=== PATIENT | female | born 1955 | race American Indian/Alaskan Native ===

== ENCOUNTER 2017-07-05 15:22 | Inpatient (IN) | payer OTHER ==
[2017-07-05 17:51] LABS: Basophils # (Auto) 0.1 K/mm3 (0.0-0.1); Basophils % (Auto) 1.1 % (0.0-1.8); Eosinophils # (Auto) 0.2 K/mm3 (0.0-0.4); Eosinophils % (Auto) 3.5 % (0.0-4.3); Hematocrit 34.8 % (30.3-42.9); Hemoglobin 11.6 gm/dl (10.1-14.3); Lymphocytes # (Auto) 1.7 K/mm3 (1.2-5.4); Lymphocytes % (Auto) 32.2 % (13.4-35.0); Mean Corpuscular HGB Conc 34 % (30-34); Mean Corpuscular Hemoglobin 28 pg (28-32); Mean Corpuscular Volume 85 fl (79-97); Monocytes # (Auto) 0.3 K/mm3 (0.0-0.8); Monocytes % (Auto) 6.6 % (0.0-7.3); Platelet Count 292 K/mm3 (140-440); Red Blood Count 4.09 M/mm3 (3.65-5.03); Red Cell Distribution Width 16.6 % (13.2-15.2)
[2017-07-05 18:01] LABS: INR 0.97 (0.87-1.13)
[2017-07-05 18:02] LABS: Partial Thromboplastin Time 32.6 Sec. (24.2-36.6)
[2017-07-05 18:18] LABS: BUN/Creatinine Ratio 14; Blood Urea Nitrogen 7 mg/dL (7-17); Calcium 8.7 mg/dL (8.4-10.2); Creatine Kinase MB 1.5 ng/mL (0.0-4.0); Hemolysis Index 7
[2017-07-05 18:22] LABS: Alanine Aminotransferase 5 units/L (7-56); Albumin 3.6 g/dL (3.9-5)
[2017-07-05 18:25] LABS: Bilirubin,Direct 0.2 mg/dL (0-0.2)
[2017-07-05] MEDS ORDERED: ATIVAN IV ONE (18:36)
[2017-07-05] MEDS ORDERED: NACL 0.9% 1000 ML 1,000 ML ONE (18:43)
--- NOTE | 2017-07-05 18:53 | XRay Report ---
FINAL REPORT PROCEDURE: Chest. TECHNIQUE: Portable AP view. HISTORY: Hypertension. COMPARISON: No prior studies are available for comparison. FINDINGS: The patient is rotated to the right. The heart size is normal. There is mild tortuosity of the thoracic aorta. The lungs are clear and well expanded. There are no pleural effusions. The soft tissues and regional skeleton are unremarkable. IMPRESSION: Negative portable chest.
[2017-07-05] MEDS ORDERED: NACL 0.9% 1000 ML 1,000 ML IV ONE (19:08)
[2017-07-05 19:40] LABS: Amphetamine Screen,Urine PRESUMPTIVE NEGATIVE; Benzodiazepines Screen,Urine PRESUMPTIVE NEGATIVE; Cannabinoid Screen,Urine PRESUMPTIVE NEGATIVE; Cocaine Screen,Urine PRESUMPTIVE NEGATIVE; Methadone Screen,Urine PRESUMPTIVE NEGATIVE; Opiate Screen,Urine PRESUMPTIVE NEGATIVE
[2017-07-05 19:46] LABS: Amorphous Crystals,Urine 2+; Bilirubin,Urine NEG (Negative); Blood,Urine NEG (Negative); Color,Urine Amber (Yellow); Mucus,Urine 3+ /HPF; Nitrite,Urine NEG (Negative)
[2017-07-05 19:48] LABS: RBC,Urine < 1.0 /HPF (0.0-6.0); WBC,Urine < 1.0 /HPF (0.0-6.0)
--- NOTE | 2017-07-05 20:00 | Cat Scan Report ---
FINAL REPORT PROCEDURE: CT head without contrast. TECHNIQUE: Computerized tomography of the head was performed without contrast material. HISTORY: Altered mental status. COMPARISON: No prior studies are available for comparison. FINDINGS: The ventricles are normal in size. There are some old lacunar infarcts in the deep white matter of both frontal lobes and in the right side of the hector. There are subtle old lacunar infarcts in both sides of the thalamus. There is mild evidence of chronic ischemic white matter disease. There are no mass lesions. There is no intracranial hemorrhage. The calvarium appears intact. There is a tiny amount of fluid in a couple of the right mastoid air cells. The paranasal sinuses are clear as far as visualized. IMPRESSION: Chronic ischemic changes as described. Mild right mastoiditis.
--- NOTE | 2017-07-05 20:02 | Emergency Department Report ---
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 The triage note refers to left-sided weakness but this is an acute problem per the family. She is here today because she is confused and disoriented. Assessment present at least since this morning. The patient has a history of chronic back pain. However she is not on chronic narcotics. She does take gabapentin. The family reports no history of serious infection or frequent UTIs. They report no recent fever or chills. The patient is awake and reasonably alert. She does not complain of pain. She states she thinks that she is at [facility] but she knows she is in a hospital. Crisis family patient has a history of lupus. I am not sure the basis of this diagnosis. -: Gradual, hour(s) Severity scale (0 -10): 0 - Related Data Home Medications Medication Instructions Recorded Confirmed Last Taken AtorvaSTATin [Lipitor] 40 mg PO QPM 07/05/17 07/05/17 Unknown Baclofen [Lioresal] 10 mg PO TID 07/05/17 07/05/17 Unknown Gabapentin [Neurontin] 300 mg PO TID 07/05/17 07/05/17 Unknown Metoprolol Succinate [Toprol Xl] 150 mg PO DAILY 07/05/17 07/05/17 Unknown Allergies Allergy/AdvReac Type Severity Reaction Status Date / Time amoxicillin Allergy Rash Verified 07/05/17 16:47 azithromycin Allergy Hives Verified 07/05/17 16:47 codeine Allergy Unknown Verified 07/05/17 16:47 morphine Allergy Unknown Verified 07/05/17 16:47 Sulfa (Sulfonamide Allergy Rash Verified 07/05/17 16:47 Antibiotics) lisinopril AdvReac Nausea Verified 07/05/17 16:47 lovastatin AdvReac Unknown Verified 07/05/17 16:47 ED Review of Systems ROS: Stated complaint: AMS/ M/S POSS STROKE Other details as noted in HPI Comment: Unobtainable due to pts medical conditions ED Past Medical Hx - Past Medical History Previous Medical History?: Yes Hx Hypertension: Yes Hx CVA: Yes Additional medical history: Hx of back spasms; lupus; edema; - Social History Smoking Status: Unknown if ever smoked - Medications Home Medications: Home Medications Medication Instructions Recorded Confirmed Last Taken Type AtorvaSTATin [Lipitor] 40 mg PO QPM 07/05/17 07/05/17 Unknown History Baclofen [Lioresal] 10 mg PO TID 07/05/17 07/05/17 Unknown History Gabapentin [Neurontin] 300 mg PO TID 07/05/17 07/05/17 Unknown History Metoprolol Succinate [Toprol Xl] 150 mg PO DAILY 07/05/17 07/05/17 Unknown History ED Physical Exam - General Limitations: Altered Mental Status General appearance: alert, in no apparent distress - Head Head exam: Present: atraumatic, normocephalic - Eye Eye exam: Present: normal appearance, PERRL, EOMI. Absent: scleral icterus - ENT ENT exam: Present: mucous membranes moist - Neck Neck exam: Present: normal inspection - Respiratory Respiratory exam: Present: normal lung sounds bilaterally. Absent: respiratory distress - Cardiovascular Cardiovascular Exam: Present: regular rate, normal rhythm. Absent: systolic murmur, diastolic murmur, rubs, gallop - GI/Abdominal GI/Abdominal exam: Present: soft, normal bowel sounds. Absent: distended, tenderness, guarding, rebound - Extremities Exam Extremities exam: Present: normal inspection - Back Exam Back exam: Present: normal inspection - Neurological Exam Neurological exam: Present: alert, oriented X3, CN II-XII intact, other (I did not find any evidence of drift or focal deficit). Absent: motor sensory deficit - Psychiatric Psychiatric exam: Present: agitated (minorLY), flat affect - Skin Skin exam: Present: warm, dry, intact, normal color. Absent: rash ED Course Vital Signs 07/05/17 07/05/17 07/05/17 16:24 16:29 16:30 Temperature 98.5 F Pulse Rate 84 Respiratory 15 Rate Blood Pressure 165/89 165/89 Blood Pressure 165/89 [Right] O2 Sat by Pulse 92 92 Oximetry 07/05/17 07/05/17 07/05/17 16:45 16:50 17:01 Temperature 98.5 F Pulse Rate 83 84 80 Respiratory 13 15 12 Rate Blood Pressure 165/89 173/80 Blood Pressure 165/89 [Right] O2 Sat by Pulse 97 92 95 Oximetry 07/05/17 07/05/17 07/05/17 17:15 17:31 17:45 Temperature Pulse Rate 81 82 82 Respiratory 13 14 17 Rate Blood Pressure 173/80 128/85 128/85 Blood Pressure [Right] O2 Sat by Pulse 96 99 98 Oximetry ED Medical Decision Making - Lab Data Result diagrams: 07/05/17 17:30 07/05/17 17:30 Laboratory Results - last 24 hr 07/05/17 07/05/17 07/05/17 17:27 17:30 17:30 WBC 5.1 RBC 4.09 Hgb 11.6 Hct 34.8 MCV 85 MCH 28 MCHC 34 RDW 16.6 H Plt Count 292 Lymph % (Auto) 32.2 [place] % (Auto) 6.6 Eos % (Auto) 3.5 Baso % (Auto) 1.1 Lymph # 1.7 [place] # 0.3 Eos # 0.2 Baso # 0.1 Seg Neutrophils % 56.6 Seg Neutrophils # 2.9 PT INR APTT Sodium Potassium Chloride Carbon Dioxide Anion Gap BUN Creatinine Estimated GFR BUN/Creatinine Ratio Glucose POC Glucose 72 Lactic Acid Calcium Total Bilirubin Direct Bilirubin Indirect Bilirubin AST ALT Alkaline Phosphatase Ammonia Total Creatine Kinase CK-MB (CK-2) CK-MB (CK-2) Rel Index Troponin T NT-Pro-B Natriuret Pep Total Protein Albumin Albumin/Globulin Ratio TSH 1.140 Urine Color Urine Turbidity Urine pH Ur Specific [place] Urine Protein Urine Glucose (UA) Urine Ketones Urine Blood Urine Nitrite Urine Bilirubin Urine Urobilinogen Ur Leukocyte Esterase Urine WBC (Auto) Urine RBC (Auto) U Epithel Cells (Auto) Amorphous Crystals Urine Mucus Urine Opiates Screen Urine Methadone Screen Ur Barbiturates Screen Ur Phencyclidine Scrn Ur Amphetamines Screen U Benzodiazepines Scrn Urine Cocaine Screen U Marijuana (THC) Screen Drugs of Abuse Note Plasma/Serum Alcohol 07/05/17 07/05/17 07/05/17 17:30 17:30 17:30 WBC RBC Hgb Hct MCV MCH MCHC RDW Plt Count Lymph % (Auto) [place] % (Auto) Eos % (Auto) Baso % (Auto) Lymph # [place] # Eos # Baso # Seg Neutrophils % Seg Neutrophils # PT 13.4 INR 0.97 APTT 32.6 Sodium Potassium Chloride Carbon Dioxide Anion Gap BUN Creatinine Estimated GFR BUN/Creatinine Ratio Glucose POC Glucose Lactic Acid Calcium Total Bilirubin Direct Bilirubin Indirect Bilirubin AST ALT Alkaline Phosphatase Ammonia 29.0 Total Creatine Kinase CK-MB (CK-2) CK-MB (CK-2) Rel Index Troponin T NT-Pro-B Natriuret Pep Total Protein Albumin Albumin/Globulin Ratio TSH Urine Color Urine Turbidity Urine pH Ur Specific [place] Urine Protein Urine Glucose (UA) Urine Ketones Urine Blood Urine Nitrite Urine Bilirubin Urine Urobilinogen Ur Leukocyte Esterase Urine WBC (Auto) Urine RBC (Auto) U Epithel Cells (Auto) Amorphous Crystals Urine Mucus Urine Opiates Screen Urine Methadone Screen Ur Barbiturates Screen Ur Phencyclidine Scrn Ur Amphetamines Screen U Benzodiazepines Scrn Urine Cocaine Screen U Marijuana (THC) Screen Drugs of Abuse Note Plasma/Serum Alcohol < 0.01 07/05/17 07/05/17 07/05/17 17:30 17:30 17:30 WBC RBC Hgb Hct MCV MCH MCHC RDW Plt Count Lymph % (Auto) [place] % (Auto) Eos % (Auto) Baso % (Auto) Lymph # [place] # Eos # Baso # Seg Neutrophils % Seg Neutrophils # PT INR APTT Sodium 140 Potassium 3.4 L Chloride 98.3 Carbon Dioxide 23 Anion Gap 22 BUN 7 Creatinine 0.5 L Estimated GFR > 60 BUN/Creatinine Ratio 14 Glucose 80 POC Glucose Lactic Acid 1.20 Calcium 8.7 Total Bilirubin 0.70 Direct Bilirubin 0.2 Indirect Bilirubin 0.5 AST 17 ALT 5 L Alkaline Phosphatase 72 Ammonia Total Creatine Kinase 94 CK-MB (CK-2) 1.5 CK-MB (CK-2) Rel Index 1.5 Troponin T < 0.010 NT-Pro-B Natriuret Pep 532.0 Total Protein 7.8 Albumin 3.6 L Albumin/Globulin Ratio 0.9 TSH Urine Color Urine Turbidity Urine pH Ur Specific [place] Urine Protein Urine Glucose (UA) Urine Ketones Urine Blood Urine Nitrite Urine Bilirubin Urine Urobilinogen Ur Leukocyte Esterase Urine WBC (Auto) Urine RBC (Auto) U Epithel Cells (Auto) Amorphous Crystals Urine Mucus Urine Opiates Screen Urine Methadone Screen Ur Barbiturates Screen Ur Phencyclidine Scrn Ur Amphetamines Screen U Benzodiazepines Scrn Urine Cocaine Screen U Marijuana (THC) Screen Drugs of Abuse Note Plasma/Serum Alcohol 07/05/17 07/05/17 19:00 19:00 WBC RBC Hgb Hct MCV MCH MCHC RDW Plt Count Lymph % (Auto) [place] % (Auto) Eos % (Auto) Baso % (Auto) Lymph # [place] # Eos # Baso # Seg Neutrophils % Seg Neutrophils # PT INR APTT Sodium Potassium Chloride Carbon Dioxide Anion Gap BUN Creatinine Estimated GFR BUN/Creatinine Ratio Glucose POC Glucose Lactic Acid Calcium Total Bilirubin Direct Bilirubin Indirect Bilirubin AST ALT Alkaline Phosphatase Ammonia Total Creatine Kinase CK-MB (CK-2) CK-MB (CK-2) Rel Index Troponin T NT-Pro-B Natriuret Pep Total Protein Albumin Albumin/Globulin Ratio TSH Urine Color [place]ha Urine Turbidity Clear Urine pH 6.0 Ur Specific [place] 1.023 Urine Protein 100 mg/dl Urine Glucose (UA) Neg Urine Ketones 20 Urine Blood Neg Urine Nitrite Neg Urine Bilirubin Neg Urine Urobilinogen 4.0 Ur Leukocyte Esterase Neg Urine WBC (Auto) < 1.0 Urine RBC (Auto) < 1.0 U Epithel Cells (Auto) 2.0 Amorphous Crystals 2+ Urine Mucus 3+ Urine Opiates Screen Presumptive negative Urine Methadone Screen Presumptive negative Ur Barbiturates Screen Presumptive negative Ur Phencyclidine Scrn Presumptive negative Ur Amphetamines Screen Presumptive negative U Benzodiazepines Scrn Presumptive negative Urine Cocaine Screen Presumptive negative U Marijuana (THC) Screen Presumptive negative Drugs of Abuse Note Disclamer Plasma/Serum Alcohol - EKG Data -: EKG Interpreted by Me EKG shows normal: sinus rhythm, axis, intervals, QRS complexes, ST-T waves Rate: normal - EKG Data Interpretation: normal EKG - Radiology Data interpreted by me: CT of the head I do not see any acute intracranial process. Report pending per radiologist. Chest x-ray no acute process Critical care attestation.: If time is entered above; I have spent that time in minutes in the direct care of this critically ill patient, excluding procedure time. ED Disposition Clinical Impression: Altered mental status Qualifiers: Altered mental status type: disorientation Qualified Code(s): R41.0 - Disorientation, unspecified Disposition: -09 OP ADMIT IP TO THIS HOSP Is pt being admited?: Yes Does the pt Need Aspirin: Yes Condition: Stable Referrals: PRIMARY CARE, [Primary Care Provider] - 3-5 Days Time of Disposition: 20:07
[2017-07-05] MEDS ORDERED: ASPIRIN PO ONE (20:07)
--- NOTE | 2017-07-05 20:26 | History and Physical Report ---
History of Present Illness Chief complaint: Confused, Left sided weakness History of present illness: 62 YO Female with HTN, CVA, Obesity, SLE presents to ED for evaluation. Pt confused and lethargic and unable to provide history. Pt history taken from family. As per family, patient was in her usual state of health upon going to bed on the night prior to admission around 2100hrs. Upon waking this morning, the patient was found to be confused and unable to move the left side of her body. No reports of falls, trauma, seizure, fever,chills, CP, Palpitations, shortness of breath, productive cough, unintentional weight loss, HIV risk factors, hematurin, urgency, frequency, unintentional weight loss, or night sweats. Pt seen and evaluated in ED and found to be encephalopathic with systolic BP in the 170's. Patient smells of urine. Pt outside therapeutic window for TPA. Pt status discussed with [facility]ician, who requests that the patient undergo workup and treatment at [facility]. Past History Past Medical History: hypertension, stroke, other (Lupus) Past Surgical History: No surgical history, Other (reviewed) Social history: single. denies: smoking, alcohol abuse, prescription drug abuse Family history: hypertension Medications and Allergies Allergies Allergy/AdvReac Type Severity Reaction Status Date / Time amoxicillin Allergy Rash Verified 07/05/17 16:47 azithromycin Allergy Hives Verified 07/05/17 16:47 codeine Allergy Unknown Verified 07/05/17 16:47 morphine Allergy Unknown Verified 07/05/17 16:47 Sulfa (Sulfonamide Allergy Rash Verified 07/05/17 16:47 Antibiotics) lisinopril AdvReac Nausea Verified 07/05/17 16:47 lovastatin AdvReac Unknown Verified 07/05/17 16:47 Home Medications Medication Instructions Recorded Confirmed Last Taken Type AtorvaSTATin [Lipitor] 40 mg PO QPM 07/05/17 07/05/17 Unknown History Baclofen [Lioresal] 10 mg PO TID 07/05/17 07/05/17 Unknown History Gabapentin [Neurontin] 300 mg PO TID 07/05/17 07/05/17 Unknown History Metoprolol Succinate [Toprol Xl] 150 mg PO DAILY 07/05/17 07/05/17 Unknown History Active Meds: Active Medications Sodium Chloride (Nacl 0.9% 1000 Ml) 1,000 mls @ 125 mls/hr IV ONCE ONE Stop: 07/06/17 03:07 Review of Systems ROS unobtainable: due to mental status Exam - Constitutional Vitals: Temp Pulse Resp BP Pulse Ox 98.6 F 76 16 176/95 96 07/05/17 19:50 07/05/17 19:50 07/05/17 19:50 07/05/17 19:50 07/05/17 19:50 General appearance: Present: mild distress - EENT Eyes: Present: PERRL ENT: hearing intact, clear oral mucosa, poor dentition - Neck Neck: Present: supple, normal ROM - Respiratory Respiratory effort: normal Respiratory: bilateral: diminished - Cardiovascular Heart Sounds: Present: S1 & S2. Absent: rub, click - Extremities Extremities: pulses symmetrical, No edema Peripheral Pulses: within normal limits - Abdominal General gastrointestinal: Present: soft Female genitourinary: Present: normal - Integumentary Integumentary: Present: clear, dry, decreased turgor - Musculoskeletal Musculoskeletal: left sided weakness - Psychiatric Psychiatric: no intact judgment & insight, no memory intact - Neurologic Neurologic: focal deficits, no moves all extremities, no gait normal Results - Labs CBC & Chem 7: 07/05/17 17:30 07/05/17 17:30 Labs: Abnormal lab results 07/05/17 07/05/17 07/05/17 Range/Units 17:30 17:30 17:30 RDW 16.6 H (13.2-15.2) % Potassium 3.4 L (3.6-5.0) mmol/L Creatinine 0.5 L (0.7-1.2) mg/dL ALT 5 L (7-56) units/L Albumin 3.6 L (3.9-5) g/dL Assessment and Plan - Patient Problems (1) CVA (cerebral vascular accident) Current Visit: Yes Status: Acute Qualifiers: Precerebral and cerebral artery: middle cerebral artery Laterality of affected vessel: right Plan to address problem: Stroke protocol: CT Head, MRI brain, MRA brain, Echo, Carotod doppler, PT/OT/ Speech Therapy, antiplatelet therapy, EEG, Telemetry monitoring (2) Encephalopathy Current Visit: Yes Status: Acute Plan to address problem: CT head, neuro checks, bmp, serial physical exam. (3) Accelerated hypertension Current Visit: Yes Status: Acute Plan to address problem: Permissive hypertension overnight, monitor bp q shift, (4) Lupus Current Visit: Yes Status: Acute Qualifiers: Lupus erythematosus form: systemic Systemic lupus erythematosus type: unspecified Systemic lupus erythematosus organ involvement: unspecified Qualified Code(s): M32.9 - Systemic lupus erythematosus, unspecified Plan to address problem: No acute flare, supportive care, initiate steroid therapy if recurrent symptoms. (5) DVT prophylaxis Current Visit: Yes Status: Acute
[2017-07-05] MEDS ORDERED: PHENERGAN PR PRN (20:33)
[2017-07-05] MEDS ORDERED: DULCOLAX PR PRN (20:33)
[2017-07-05] MEDS ORDERED: TYLENOL PO PRN (20:33)
[2017-07-05] MEDS ORDERED: SODIUM CHLORIDE FLUSH SYRINGE 10 ML IV PRN (20:33)
[2017-07-05] MEDS ORDERED: ZOFRAN IV PRN (20:33)
[2017-07-05] MEDS ORDERED: PROVENTIL IH PRN (20:33)
[2017-07-05] MEDS ORDERED: MILK OF MAGNESIA PO PRN (20:33)
[2017-07-05] MEDS ORDERED: REGLAN PO PRN (20:33)
[2017-07-05 22:18] LABS: Creatine Kinase MB 1.6 ng/mL (0.0-4.0)
--- NOTE | 2017-07-06 11:13 | Progress Note ---
Assessment and Plan Assessment and plan: Acute CVA. Continue stroke protocol. Follow-up CT Head, MRI brain, MRA brain, Echo, Carotod doppler reveals less than 50% stenosis bilaterally, PT/OT/ Speech Therapy, antiplatelet therapy, EEG, Telemetry monitoring Acute encephalopathy. Etiology likely secondary to #1. Continue supportive care. Follow-up imaging. Accelerated hypertension. Continue permissive hypertension. Resume antihypertensive medications. SLE. Continue supportive care. DVT prophylaxis. History Interval history: Patient continues to have left lower extremity weakness. Hospitalist Physical - Constitutional Vitals: Temp Pulse Resp BP Pulse Ox 98.6 F 82 20 174/72 96 07/05/17 19:50 07/06/17 09:01 07/06/17 09:01 07/06/17 09:01 07/05/17 19:50 General appearance: Present: mild distress - EENT Eyes: Present: PERRL, EOM intact ENT: hearing intact, clear oral mucosa, dentition normal - Neck Neck: Present: supple, normal ROM - Respiratory Respiratory effort: normal Respiratory: bilateral: CTA - Cardiovascular Rhythm: regular Heart Sounds: Present: S1 & S2. Absent: gallop, rub - Extremities Extremities: no ischemia, No edema, Full ROM - Abdominal General gastrointestinal: soft, non-tender, non-distended, normal bowel sounds - Integumentary Integumentary: Present: clear, warm, dry - Neurologic Neurologic: CNII-XII intact, moves all extremities Results - Labs CBC & Chem 7: 07/05/17 17:30 07/05/17 17:30 Labs: Laboratory Last Values WBC 5.1 K/mm3 (4.5-11.0) 07/05/17 17:30 RBC 4.09 M/mm3 (3.65-5.03) 07/05/17 17:30 Hgb 11.6 gm/dl (10.1-14.3) 07/05/17 17:30 Hct 34.8 % (30.3-42.9) 07/05/17 17:30 MCV 85 fl (79-97) 07/05/17 17:30 MCH 28 pg (28-32) 07/05/17 17:30 MCHC 34 % (30-34) 07/05/17 17:30 RDW 16.6 % (13.2-15.2) H 07/05/17 17:30 Plt Count 292 K/mm3 (140-440) 07/05/17 17:30 Lymph % (Auto) 32.2 % (13.4-35.0) 07/05/17 17:30 [place] % (Auto) 6.6 % (0.0-7.3) 07/05/17 17:30 Eos % (Auto) 3.5 % (0.0-4.3) 07/05/17 17:30 Baso % (Auto) 1.1 % (0.0-1.8) 07/05/17 17:30 Lymph # 1.7 K/mm3 (1.2-5.4) 07/05/17 17:30 [place] # 0.3 K/mm3 (0.0-0.8) 07/05/17 17:30 Eos # 0.2 K/mm3 (0.0-0.4) 07/05/17 17:30 Baso # 0.1 K/mm3 (0.0-0.1) 07/05/17 17:30 Seg Neutrophils % 56.6 % (40.0-70.0) 07/05/17 17:30 Seg Neutrophils # 2.9 K/mm3 (1.8-7.7) 07/05/17 17:30 PT 13.4 Sec. (12.2-14.9) 07/05/17 17:30 INR 0.97 (0.87-1.13) 07/05/17 17:30 APTT 32.6 Sec. (24.2-36.6) 07/05/17 17:30 Sodium 140 mmol/L (137-145) 07/05/17 17:30 Potassium 3.4 mmol/L (3.6-5.0) L 07/05/17 17:30 Chloride 98.3 mmol/L (98-107) 07/05/17 17:30 Carbon Dioxide 23 mmol/L (22-30) 07/05/17 17:30 Anion Gap 22 mmol/L 07/05/17 17:30 BUN 7 mg/dL (7-17) 07/05/17 17:30 Creatinine 0.5 mg/dL (0.7-1.2) L 07/05/17 17:30 Estimated GFR > 60 ml/min 07/05/17 17:30 BUN/Creatinine Ratio 14 % 07/05/17 17:30 Glucose 80 mg/dL (65-100) 07/05/17 17:30 POC Glucose 72 (70-105) 07/05/17 17:27 Lactic Acid 1.20 mmol/L (0.7-2.0) 07/05/17 17:30 Calcium 8.7 mg/dL (8.4-10.2) 07/05/17 17:30 Total Bilirubin 0.70 mg/dL (0.1-1.2) 07/05/17 17:30 Direct Bilirubin 0.2 mg/dL (0-0.2) 07/05/17 17:30 Indirect Bilirubin 0.5 mg/dL 07/05/17 17:30 AST 17 units/L (5-40) 07/05/17 17:30 ALT 5 units/L (7-56) L 07/05/17 17:30 Alkaline Phosphatase 72 units/L (35-129) 07/05/17 17:30 Ammonia 29.0 umol/L (25-60) 07/05/17 17:30 Total Creatine Kinase 108 units/L (30-135) 07/05/17 21:46 CK-MB (CK-2) 1.6 ng/mL (0.0-4.0) 07/05/17 21:46 CK-MB (CK-2) Rel Index 1.4 (0-4) 07/05/17 21:46 Troponin T < 0.010 ng/mL (0.00-0.029) 07/05/17 17: NT-Pro-B Natriuret Pep 532.0 pg/mL (0-900) 07/05/17 17:30 Total Protein 7.8 g/dL (6.3-8.2) 07/05/17 17:30 Albumin 3.6 g/dL (3.9-5) L 07/05/17 17:30 Albumin/Globulin Ratio 0.9 % 07/05/17 17:30 TSH 1.140 mlU/mL (0.270-4.200) 07/05/17 17:30 Urine Color [place]ha (Yellow) 07/05/17 19:00 Urine Turbidity Clear (Clear) 07/05/17 19:00 Urine pH 6.0 (5.0-7.0) 07/05/17 19:00 Ur Specific [place] 1.023 (1.003-1.030) 07/05/17 19:00 Urine Protein 100 mg/dl mg/dL (Negative) 07/05/17 19:00 Urine Glucose (UA) Neg mg/dL (Negative) 07/05/17 19:00 Urine Ketones 20 mg/dL (Negative) 07/05/17 19:00 Urine Blood Neg (Negative) 07/05/17 19:00 Urine Nitrite Neg (Negative) 07/05/17 19:00 Urine Bilirubin Neg (Negative) 07/05/17 19:00 Urine Urobilinogen 4.0 mg/dL (<2.0) 07/05/17 19:00 Ur Leukocyte Esterase Neg (Negative) 07/05/17 19:00 Urine WBC (Auto) < 1.0 /HPF (0.0-6.0) 07/05/17 19:00 Urine RBC (Auto) < 1.0 /HPF (0.0-6.0) 07/05/17 19:00 U Epithel Cells (Auto) 2.0 /HPF (0-13.0) 07/05/17 19:00 Amorphous Crystals 2+ 07/05/17 19:00 Urine Mucus 3+ /HPF 07/05/17 19:00 Urine Opiates Screen Presumptive negative 07/05/17 19:00 Urine Methadone Screen Presumptive negative 07/05/17 19:00 Ur Barbiturates Screen Presumptive negative 07/05/17 19:00 Ur Phencyclidine Scrn Presumptive negative 07/05/17 19:00 Ur Amphetamines Screen Presumptive negative 07/05/17 19:00 U Benzodiazepines Scrn Presumptive negative 07/05/17 19:00 Urine Cocaine Screen Presumptive negative 07/05/17 19:00 U Marijuana (THC) Screen Presumptive negative 07/05/17 19:00 Drugs of Abuse Note Disclamer 07/05/17 19:00 Plasma/Serum Alcohol < 0.01 gm% (0-0.07) 07/05/17 17:30
[2017-07-06 14:42] LABS: Chol/HDL Ratio 4.13 %
--- NOTE | 2017-07-06 18:55 | Magnetic Resonance Report ---
FINAL REPORT PROCEDURE: MRI brain without contrast. TECHNIQUE: Magnetic resonance imaging of the brain was performed without contrast material. HISTORY: Stroke. COMPARISON: CT head 07/05/2017. FINDINGS: There is motion artifact on some of the pulse sequences. There is mild cerebral atrophy. There are old lacunar infarcts in the deep white matter of both frontal lobes. There is an old lacunar infarct in the right side of the [place]. There are old lacunar infarcts in both sides of the thalamus. There are no mass lesions. There is no intracranial hemorrhage. There are several small focal areas of restricted diffusion. These are located in the corpus callosum, the posterior portion of the left frontal lobe, the left parietal lobe, and the right parietal lobe. These small scattered areas are confirmed on the ADC map images. These represent small areas of acute infarction. Given their widespread distribution, they may be embolic in etiology. Clinical correlation is suggested. There is a tiny amount of fluid in a few of the right mastoid air cells. The paranasal sinuses are clear. IMPRESSION: New multifocal tiny areas of acute ischemia as described. An embolic source should be considered. Chronic ischemic changes as described. Very mild right mastoiditis.
--- NOTE | 2017-07-06 19:07 | Magnetic Resonance Report ---
FINAL REPORT PROCEDURE: Magnetic resonance angiogram brain without contrast. TECHNIQUE: Axial 3-D [id number] MR angiography of the [place] and brain was performed. The source images were reconstructed in various views using maximum intensity projection. HISTORY: Stroke. COMPARISON: No prior studies are available for comparison. FINDINGS: Both distal internal carotid arteries are patent. Both anterior cerebral arteries are patent. The anterior communicating artery is patent. Both middle cerebral arteries are patent. The posterior communicating arteries are not definitely visualized. Both distal vertebral arteries are patent. The right posterior inferior cerebellar artery is patent. The left PICA is not visible. The basilar artery is patent. Both anterior inferior cerebellar arteries are patent. Both superior cerebellar and both posterior cerebral arteries are patent. There are no signs of aneurysm disease. There is no evidence of a vasculitis. IMPRESSION: No significant abnormality.
[2017-07-07 06:16] LABS: Basophils % (Auto) 0.6 % (0.0-1.8); Eosinophils # (Auto) 0.2 K/mm3 (0.0-0.4); Eosinophils % (Auto) 4.6 % (0.0-4.3); Hematocrit 43.7 % (30.3-42.9); Hemoglobin 13.9 gm/dl (10.1-14.3); Lymphocytes # (Auto) 1.3 K/mm3 (1.2-5.4); Lymphocytes % (Auto) 38.3 % (13.4-35.0); Mean Corpuscular HGB Conc 32 % (30-34); Mean Corpuscular Hemoglobin 27 pg (28-32); Mean Corpuscular Volume 86 fl (79-97); Monocytes # (Auto) 0.3 K/mm3 (0.0-0.8); Monocytes % (Auto) 7.9 % (0.0-7.3); Platelet Count 171 K/mm3 (140-440); Red Blood Count 5.07 M/mm3 (3.65-5.03); Red Cell Distribution Width 16.8 % (13.2-15.2)
[2017-07-07 06:31] LABS: BUN/Creatinine Ratio 13; Blood Urea Nitrogen 5 mg/dL (7-17); Calcium 8.4 mg/dL (8.4-10.2); Hemolysis Index 5
--- NOTE | 2017-07-07 12:32 | XRay Report ---
LEFT KNEE, 2 views: History: Left knee pain. Severe tricompartmental osteoarthritic changes are identified. No evidence for fracture or bone lesion. Small joint effusion. Impression:: Advanced osteoarthritis. Small joint effusion.
--- NOTE | 2017-07-08 10:47 | Progress Note ---
Assessment and Plan Assessment and plan: Acute CVA. Continue stroke protocol. MRI brain reveals new multifocal tiny areas of acute ischemia and embolic source should be considered., Echo reveals left ventricular chamber size that is normal with EF of 75-80%. Abnormal left ventricular diastolic filling is observed, consistent with impaired relaxation. No atrial septal defect detected., Carotod doppler reveals less than 50% stenosis bilaterally. Continue PT/OT/ Speech Therapy, antiplatelet therapy, EEG pending, continue Telemetry monitoring. PT recommended subacute rehabilitation. We will discuss with cardiology the possible need for [place]. Acute encephalopathy. Etiology likely secondary to #1. Resolved. Accelerated hypertension. Continue permissive hypertension. Resume antihypertensive medications. SLE. Continue supportive care. Hypokalemia. Replete potassium. DVT prophylaxis. History Interval history: Patient continues to have left lower extremity weakness. Hospitalist Physical - Constitutional Vitals: Temp Pulse Resp BP Pulse Ox 98.4 F 105 H 20 182/97 97 07/08/17 09:26 07/08/17 09:26 07/08/17 09:26 07/08/17 09:26 07/08/17 09:26 General appearance: Present: mild distress - EENT Eyes: Present: PERRL, EOM intact ENT: hearing intact, clear oral mucosa, dentition normal - Neck Neck: Present: supple, normal ROM - Respiratory Respiratory effort: normal Respiratory: bilateral: CTA - Cardiovascular Rhythm: regular Heart Sounds: Present: S1 & S2. Absent: gallop, rub - Extremities Extremities: no ischemia, No edema, Full ROM - Abdominal General gastrointestinal: soft, non-tender, non-distended, normal bowel sounds - Integumentary Integumentary: Present: clear, warm, dry - Neurologic Neurologic: CNII-XII intact, moves all extremities Results - Labs CBC & Chem 7: 07/07/17 04:58 07/07/17 04:58 Labs: Laboratory Last Values WBC 3.5 K/mm3 (4.5-11.0) L 07/07/17 04:58 RBC 5.07 M/mm3 (3.65-5.03) H 07/07/17 04:58 Hgb 13.9 gm/dl (10.1-14.3) 07/07/17 04:58 Hct 43.7 % (30.3-42.9) H D 07/07/17 04:58 MCV 86 fl (79-97) 07/07/17 04:58 MCH 27 pg (28-32) L 07/07/17 04:58 MCHC 32 % (30-34) 07/07/17 04:58 RDW 16.8 % (13.2-15.2) H 07/07/17 04:58 Plt Count 171 K/mm3 (140-440) 07/07/17 04:58 Lymph % (Auto) 38.3 % (13.4-35.0) H 07/07/17 04:58 [place] % (Auto) 7.9 % (0.0-7.3) H 07/07/17 04:58 Eos % (Auto) 4.6 % (0.0-4.3) H 07/07/17 04:58 Baso % (Auto) 0.6 % (0.0-1.8) 07/07/17 04:58 Lymph # 1.3 K/mm3 (1.2-5.4) 07/07/17 04:58 [place] # 0.3 K/mm3 (0.0-0.8) 07/07/17 04:58 Eos # 0.2 K/mm3 (0.0-0.4) 07/07/17 04:58 Baso # 0.0 K/mm3 (0.0-0.1) 07/07/17 04:58 Seg Neutrophils % 48.6 % (40.0-70.0) 07/07/17 04:58 Seg Neutrophils # 1.7 K/mm3 (1.8-7.7) L 07/07/17 04:58 PT 13.4 Sec. (12.2-14.9) 07/05/17 17:30 INR 0.97 (0.87-1.13) 07/05/17 17:30 APTT 32.6 Sec. (24.2-36.6) 07/05/17 17:30 Sodium 145 mmol/L (137-145) 07/07/17 04:58 Potassium 3.3 mmol/L (3.6-5.0) L 07/07/17 04:58 Chloride 105.2 mmol/L (98-107) 07/07/17 04:58 Carbon Dioxide 20 mmol/L (22-30) L 07/07/17 04:58 Anion Gap 23 mmol/L 07/07/17 04:58 BUN 5 mg/dL (7-17) L 07/07/17 04:58 Creatinine 0.4 mg/dL (0.7-1.2) L 07/07/17 04:58 Estimated GFR > 60 ml/min 07/07/17 04:58 BUN/Creatinine Ratio 13 % 07/07/17 04:58 Glucose 73 mg/dL (65-100) 07/07/17 04:58 POC Glucose 72 (70-105) 07/05/17 17:27 Lactic Acid 1.20 mmol/L (0.7-2.0) 07/05/17 17:30 Calcium 8.4 mg/dL (8.4-10.2) 07/07/17 04:58 Total Bilirubin 0.70 mg/dL (0.1-1.2) 07/05/17 17:30 Direct Bilirubin 0.2 mg/dL (0-0.2) 07/05/17 17:30 Indirect Bilirubin 0.5 mg/dL 07/05/17 17:30 AST 17 units/L (5-40) 07/05/17 17:30 ALT 5 units/L (7-56) L 07/05/17 17:30 Alkaline Phosphatase 72 units/L (35-129) 07/05/17 17:30 Ammonia 29.0 umol/L (25-60) 07/05/17 17:30 Total Creatine Kinase 108 units/L (30-135) 07/05/17 21:46 CK-MB (CK-2) 1.6 ng/mL (0.0-4.0) 07/05/17 21:46 CK-MB (CK-2) Rel Index 1.4 (0-4) 07/05/17 21:46 Troponin T < 0.010 ng/mL (0.00-0.029) 07/05/17 17:30 NT-Pro-B Natriuret Pep 532.0 pg/mL (0-900) 07/05/17 17:30 Total Protein 7.8 g/dL (6.3-8.2) 07/05/17 17:30 Albumin 3.6 g/dL (3.9-5) L 07/05/17 17:30 Albumin/Globulin Ratio 0.9 % 07/05/17 17:30 Triglycerides 113 mg/dL (2-149) 07/06/17 08:39 Cholesterol 149 mg/dL (50-199) 07/06/17 08:39 LDL Cholesterol Direct 91 mg/dL (50-130) 07/06/17 08:39 HDL Cholesterol 36 mg/dL (40-59) L 07/06/17 08:39 Cholesterol/HDL Ratio 4.13 % 07/06/17 08:39 TSH 1.140 mlU/mL (0.270-4.200) 07/05/17 17:30 Urine Color Radha (Yellow) 07/05/17 19:00 Urine Turbidity Clear (Clear) 07/05/17 19:00 Urine pH 6.0 (5.0-7.0) 07/05/17 19:00 Ur Specific [place] 1.023 (1.003-1.030) 07/05/17 19:00 Urine Protein 100 mg/dl mg/dL (Negative) 07/05/17 19:00 Urine Glucose (UA) Neg mg/dL (Negative) 07/05/17 19:00 Urine Ketones 20 mg/dL (Negative) 07/05/17 19:00 Urine Blood Neg (Negative) 07/05/17 19:00 Urine Nitrite Neg (Negative) 07/05/17 19:00 Urine Bilirubin Neg (Negative) 07/05/17 19:00 Urine Urobilinogen 4.0 mg/dL (<2.0) 07/05/17 19:00 Ur Leukocyte Esterase Neg (Negative) 07/05/17 19:00 Urine WBC (Auto) < 1.0 /HPF (0.0-6.0) 07/05/17 19:00 Urine RBC (Auto) < 1.0 /HPF (0.0-6.0) 07/05/17 19:00 U Epithel Cells (Auto) 2.0 /HPF (0-13.0) 07/05/17 19:00 Amorphous Crystals 2+ 07/05/17 19:00 Urine Mucus 3+ /HPF 07/05/17 19:00 Urine Opiates Screen Presumptive negative 07/05/17 19:00 Urine Methadone Screen Presumptive negative 07/05/17 19:00 Ur Barbiturates Screen Presumptive negative 07/05/17 19:00 Ur Phencyclidine Scrn Presumptive negative 07/05/17 19:00 Ur Amphetamines Screen Presumptive negative 07/05/17 19:00 U Benzodiazepines Scrn Presumptive negative 07/05/17 19:00 Urine Cocaine Screen Presumptive negative 07/05/17 19:00 U Marijuana (THC) Screen Presumptive negative 07/05/17 19:00 Drugs of Abuse Note Disclamer 07/05/17 19:00 Plasma/Serum Alcohol < 0.01 gm% (0-0.07) 07/05/17 17:30
[2017-07-08] MEDS: PERCOCET 5/325 PO PRN ×2 (11:32→21:24)
--- NOTE | 2017-07-09 08:32 | Discharge Summary ---
Providers - Providers Date of Admission: 07/05/17 20:33 Date of discharge: 07/09/17 Attending physician: DARRION PATEL 07/05/17 20:33 Occupational Therapy Evaluate and Treat [CONS] Routine Comment: Reason For Exam: Neuro deficits Physical Therapy Evaluation and Treat [CONS] Routine Comment: Reason For Exam: Neuro deficits 07/07/17 12:50 Speech Therapy Evaluation and Treat [CONS] Routine Reason For Exam: Recent CVA Primary care physician: CAROL BURDEN Hospitalization Reason for admission: CVA Condition: Stable Hospital course: 62 YO Female with HTN, CVA, Obesity, SLE presents to ED with complaints of being confused and unable to move the left side of her body. No reports of falls , trauma, seizure, fever,chills, CP, Palpitations, shortness of breath, productive cough, unintentional weight loss, HIV risk factors, hematurin, urgency, frequency, unintentional weight loss, or night sweats. Pt seen and evaluated in ED and found to be encephalopathic with systolic BP in the 170's. Patient was noted to be outside therapeutic window for TPA. The patient was admitted with diagnosis of acute CVA. Patient was placed on the stroke protocol. MRI revealed new multifocal tiny areas of acute ischemia and embolic source should be considered. Echo revealed left ventricular chamber size that is normal with EF of 75-80%. Abnormal left ventricular diastolic filling is observed, consistent with impaired relaxation. No atrial septal defect detected. I discussed the case with cardiology for possibility of a [place]. They recommended the patient can have it done as an outpatient. I discussed with [place] ( Dr. Guevara) who will arrange for follow-up with cardiology and [place]. I discussed the discharge plan with the patient as well. Carotod doppler revealed less than 50% stenosis bilaterally. Physical therapy evaluated the patient and recommended SNF placement. Case management was consulted and discharged SNF was arranged. The patient received secondary prevention with statin and antiplatelet. She had no evidence of abnormal rhythms such as atrial fibrillation/flutter. Patient is continue with blood pressure control for her hypertension. Dedicated discharge time 34 minutes. Disposition: - TO HOME OR SELFCARE Time spent for discharge: 34 - Discharge Diagnoses (1) Accelerated hypertension Status: Acute (2) CVA (cerebral vascular accident) Status: Acute Qualifiers: Precerebral and cerebral artery: middle cerebral artery Laterality of affected vessel: right (3) Encephalopathy Status: Acute (4) Lupus Status: Acute Qualifiers: Lupus erythematosus form: systemic Systemic lupus erythematosus type: unspecified Systemic lupus erythematosus organ involvement: unspecified Qualified Code(s): M32.9 - Systemic lupus erythematosus, unspecified Core Measure Documentation - Palliative Care Palliative Care/ Comfort Measures: Not Applicable - Core Measures Any of the following diagnoses?: stroke - Stroke Discharge Requirements Statin for LDL = or >70 mg/dl on DC: Yes Anticoag for atrial fib/atrial flutter: Not Applicable Reason for no anticoag for AF/F on DC: Not Indicated Antithrombotic for ischemic stroke: Yes Exam - Constitutional Vitals: Temp Pulse Resp BP Pulse Ox 97.9 F 114 H 18 144/83 95 07/09/17 05:07/09/17 05:07/09/17 05:07/09/17 05:07/09/17 05:26 General appearance: Present: no acute distress, well-nourished - EENT Eyes: Present: PERRL ENT: hearing intact, clear oral mucosa - Neck Neck: Present: supple, normal ROM - Respiratory Respiratory effort: normal Respiratory: bilateral: CTA - Cardiovascular Heart Sounds: Present: S1 & S2. Absent: rub, click - Extremities Extremities: pulses symmetrical, No edema Peripheral Pulses: within normal limits - Abdominal General gastrointestinal: Present: soft, non-tender, non-distended, normal bowel sounds Female genitourinary: Present: normal - Integumentary Integumentary: Present: clear, warm, dry - Musculoskeletal Musculoskeletal: gait normal, strength equal bilaterally - Psychiatric Psychiatric: appropriate mood/affect, intact judgment & insight - Neurologic Neurologic: CNII-XII intact, moves all extremities Plan Activity: advance as tolerated Weight Bearing Status: Weight Bear as Tolerated Diet: low fat, low cholesterol Follow up with: PRIMARY CARE, [Referring] - 3-5 Days Prescriptions: Aspirin EC [Aspirin Enteric Coated TAB] 325 mg PO QDAY #30 tablet.
[2017-07-09] MEDS: PERCOCET 5/325 PO PRN (17:02)
--- NOTE | 2017-07-10 11:12 | Progress Note ---
Assessment and Plan Acute CVA. Continue stroke protocol. MRI brain reveals new multifocal tiny areas of acute ischemia and embolic source should be considered., Echo reveals left ventricular chamber size that is normal with EF of 75-80%. Abnormal left ventricular diastolic filling is observed, consistent with impaired relaxation. No atrial septal defect detected., Carotod doppler reveals less than 50% stenosis bilaterally. Continue PT/OT/ Speech Therapy, antiplatelet therapy, EEG pending, continue Telemetry monitoring. PT recommended subacute rehabilitation. We will discuss with cardiology the possible need for [place]. Acute encephalopathy. Etiology likely secondary to #1. Resolved. Accelerated hypertension. Continue permissive hypertension. Resume antihypertensive medications. SLE. Continue supportive care. Hypokalemia. Replete potassium. DVT prophylaxis. - Patient Problems (1) Accelerated hypertension Current Visit: Yes Status: Acute (2) CVA (cerebral vascular accident) Current Visit: Yes Status: Acute Qualifiers: Precerebral and cerebral artery: middle cerebral artery Laterality of affected vessel: right (3) Encephalopathy Current Visit: Yes Status: Acute (4) Lupus Current Visit: Yes Status: Acute Qualifiers: Lupus erythematosus form: systemic Systemic lupus erythematosus type: unspecified Systemic lupus erythematosus organ involvement: unspecified Qualified Code(s): M32.9 - Systemic lupus erythematosus, unspecified Subjective Date of service: 07/09/17 Principal diagnosis: cva Interval history: Patient continues to have left lower extremity weakness. Objective - Constitutional Vitals: Vital Signs - 12hr 07/09/17 07/10/17 07/10/17 23:55 05:05 08:26 Temperature 98.4 F 98.5 F 99.2 F Pulse Rate 117 H 113 H 114 H Respiratory 20 18 16 Rate Blood Pressure 127/64 147/83 Blood Pressure 148/88 [Right] O2 Sat by Pulse 96 93 96 Oximetry General appearance: Present: no acute distress, well-nourished - EENT Eyes: PERRL, EOM intact ENT: hearing intact, clear oral mucosa Ears: bilateral: normal - Neck Neck: supple, normal ROM - Respiratory Respiratory effort: normal Respiratory: bilateral: CTA - Breasts Breasts: normal - Cardiovascular Rhythm: regular Heart Sounds: Present: S1 & S2. Absent: gallop, rub Extremities: pulses intact, No edema, normal color, Full ROM - Gastrointestinal General gastrointestinal: Present: soft, non-tender, non-distended, normal bowel sounds - Genitourinary Female genitourinary: normal - Integumentary Integumentary: clear, warm, dry - Musculoskeletal Musculoskeletal: 1, strength equal bilaterally - Neurologic Neurologic: moves all extremities - Psychiatric Psychiatric: memory intact, appropriate mood/affect, intact judgment & insight - Labs CBC & Chem 7: 07/07/17 04:58 07/07/17 04:58
--- NOTE | 2017-07-10 11:13 | Progress Note ---
Assessment and Plan Assessment and plan: Acute CVA. Continue stroke protocol. Awaiting rehabilitation placement. The patient remains hospitalized on Wednesday, we will keep the patient NPO after midnight Wednesday night and proceed with [place] to rule out embolic source for CVA Acute encephalopathy. Etiology likely secondary to #1. Resolved. Accelerated hypertension. Continue antihypertensive medications. SLE. Continue supportive care. Hypokalemia. Replete potassium. DVT prophylaxis. Disposition. Await rehabilitation placement - Patient Problems (1) Accelerated hypertension Current Visit: Yes Status: Acute (2) CVA (cerebral vascular accident) Current Visit: Yes Status: Acute Qualifiers: Precerebral and cerebral artery: middle cerebral artery Laterality of affected vessel: right (3) Encephalopathy Current Visit: Yes Status: Acute (4) Lupus Current Visit: Yes Status: Acute Qualifiers: Lupus erythematosus form: systemic Systemic lupus erythematosus type: unspecified Systemic lupus erythematosus organ involvement: unspecified Qualified Code(s): M32.9 - Systemic lupus erythematosus, unspecified History Interval history: Patient continues to have left lower extremity weakness. Hospitalist Physical - Constitutional Vitals: Temp Pulse Resp BP Pulse Ox 99.2 F 114 H 16 148/88 96 07/10/17 08:26 07/10/17 08:26 07/10/17 08:26 07/10/17 08:26 07/10/17 08:26 General appearance: Present: no acute distress, well-nourished - EENT Eyes: Present: PERRL, EOM intact ENT: hearing intact, clear oral mucosa, dentition normal - Neck Neck: Present: supple, normal ROM - Respiratory Respiratory effort: normal Respiratory: bilateral: CTA - Cardiovascular Rhythm: regular Heart Sounds: Present: S1 & S2. Absent: gallop, rub - Extremities Extremities: no ischemia, No edema, Full ROM - Abdominal General gastrointestinal: soft, non-tender, non-distended, normal bowel sounds - Integumentary Integumentary: Present: clear, warm, dry - Neurologic Neurologic: CNII-XII intact, moves all extremities Results - Labs CBC & Chem 7: 07/07/17 04:58 07/07/17 04:58 Labs: Laboratory Last Values WBC 3.5 K/mm3 (4.5-11.0) L 07/07/17 04:58 RBC 5.07 M/mm3 (3.65-5.03) H 07/07/17 04:58 Hgb 13.9 gm/dl (10.1-14.3) 07/07/17 04:58 Hct 43.7 % (30.3-42.9) H D 07/07/17 04:58 MCV 86 fl (79-97) 07/07/17 04:58 MCH 27 pg (28-32) L 07/07/17 04:58 MCHC 32 % (30-34) 07/07/17 04:58 RDW 16.8 % (13.2-15.2) H 07/07/17 04:58 Plt Count 171 K/mm3 (140-440) 07/07/17 04:58 Lymph % (Auto) 38.3 % (13.4-35.0) H 07/07/17 04:58 [place] % (Auto) 7.9 % (0.0-7.3) H 07/07/17 04:58 Eos % (Auto) 4.6 % (0.0-4.3) H 07/07/17 04:58 Baso % (Auto) 0.6 % (0.0-1.8) 07/07/17 04:58 Lymph # 1.3 K/mm3 (1.2-5.4) 07/07/17 04:58 [place] # 0.3 K/mm3 (0.0-0.8) 07/07/17 04:58 Eos # 0.2 K/mm3 (0.0-0.4) 07/07/17 04:58 Baso # 0.0 K/mm3 (0.0-0.1) 07/07/17 04:58 Seg Neutrophils % 48.6 % (40.0-70.0) 07/07/17 04:58 Seg Neutrophils # 1.7 K/mm3 (1.8-7.7) L 07/07/17 04:58 PT 13.4 Sec. (12.2-14.9) 07/05/17 17:30 INR 0.97 (0.87-1.13) 07/05/17 17:30 APTT 32.6 Sec. (24.2-36.6) 07/05/17 17:30 Sodium 145 mmol/L (137-145) 07/07/17 04:58 Potassium 3.3 mmol/L (3.6-5.0) L 07/07/17 04:58 Chloride 105.2 mmol/L (98-107) 07/07/17 04:58 Carbon Dioxide 20 mmol/L (22-30) L 07/07/17 04:58 Anion Gap 23 mmol/L 07/07/17 04:58 BUN 5 mg/dL (7-17) L 07/07/17 04:58 Creatinine 0.4 mg/dL (0.7-1.2) L 07/07/17 04:58 Estimated GFR > 60 ml/min 07/07/17 04:58 BUN/Creatinine Ratio 13 % 07/07/17 04:58 Glucose 73 mg/dL (65-100) 07/07/17 04:58 POC Glucose 72 (70-105) 07/05/17 17:27 Lactic Acid 1.20 mmol/L (0.7-2.0) 07/05/17 17:30 Calcium 8.4 mg/dL (8.4-10.2) 07/07/17 04:58 Total Bilirubin 0.70 mg/dL (0.1-1.2) 07/05/17 17:30 Direct Bilirubin 0.2 mg/dL (0-0.2) 07/05/17 17:30 Indirect Bilirubin 0.5 mg/dL 07/05/17 17:30 AST 17 units/L (5-40) 07/05/17 17:30 ALT 5 units/L (7-56) L 07/05/17 17:30 Alkaline Phosphatase 72 units/L (35-129) 07/05/17 17:30 Ammonia 29.0 umol/L (25-60) 07/05/17 17:30 Total Creatine Kinase 108 units/L (30-135) 07/05/17 21:46 CK-MB (CK-2) 1.6 ng/mL (0.0-4.0) 07/05/17 21:46 CK-MB (CK-2) Rel Index 1.4 (0-4) 07/05/17 21:46 Troponin T < 0.010 ng/mL (0.00-0.029) 07/05/17 17:30 NT-Pro-B Natriuret Pep 532.0 pg/mL (0-900) 07/05/17 17:30 Total Protein 7.8 g/dL (6.3-8.2) 07/05/17 17:30 Albumin 3.6 g/dL (3.9-5) L 07/05/17 17:30 Albumin/Globulin Ratio 0.9 % 07/05/17 17:30 Triglycerides 113 mg/dL (2-149) 07/06/17 08:39 Cholesterol 149 mg/dL (50-199) 07/06/17 08:39 LDL Cholesterol Direct 91 mg/dL (50-130) 07/06/17 08:39 HDL Cholesterol 36 mg/dL (40-59) L 07/06/17 08:39 Cholesterol/HDL Ratio 4.13 % 07/06/17 08:39 TSH 1.140 mlU/mL (0.270-4.200) 07/05/17 17:30 Urine Color Radha (Yellow) 07/05/17 19:00 Urine Turbidity Clear (Clear) 07/05/17 19:00 Urine pH 6.0 (5.0-7.0) 07/05/17 19:00 Ur Specific [place] 1.023 (1.003-1.030) 07/05/17 19:00 Urine Protein 100 mg/dl mg/dL (Negative) 07/05/17 19:00 Urine Glucose (UA) Neg mg/dL (Negative) 07/05/17 19:00 Urine Ketones 20 mg/dL (Negative) 07/05/17 19:00 Urine Blood Neg (Negative) 07/05/17 19:00 Urine Nitrite Neg (Negative) 07/05/17 19:00 Urine Bilirubin Neg (Negative) 07/05/17 19:00 Urine Urobilinogen 4.0 mg/dL (<2.0) 07/05/17 19:00 Ur Leukocyte Esterase Neg (Negative) 07/05/17 19:00 Urine WBC (Auto) < 1.0 /HPF (0.0-6.0) 07/05/17 19:00 Urine RBC (Auto) < 1.0 /HPF (0.0-6.0) 07/05/17 19:00 U Epithel Cells (Auto) 2.0 /HPF (0-13.0) 07/05/17 19:00 Amorphous Crystals 2+ 07/05/17 19:00 Urine Mucus 3+ /HPF 07/05/17 19:00 Urine Opiates Screen Presumptive negative 07/05/17 19:00 Urine Methadone Screen Presumptive negative 07/05/17 19:00 Ur Barbiturates Screen Presumptive negative 07/05/17 19:00 Ur Phencyclidine Scrn Presumptive negative 07/05/17 19:00 Ur Amphetamines Screen Presumptive negative 07/05/17 19:00 U Benzodiazepines Scrn Presumptive negative 07/05/17 19:00 Urine Cocaine Screen Presumptive negative 07/05/17 19:00 U Marijuana (THC) Screen Presumptive negative 07/05/17 19:00 Drugs of Abuse Note Disclamer 07/05/17 19:00 Plasma/Serum Alcohol < 0.01 gm% (0-0.07) 07/05/17 17:30
[2017-07-10] MEDS: PERCOCET 5/325 PO PRN (17:27)
[2017-07-11] MEDS: PERCOCET 5/325 PO PRN ×2 (11:42→23:20)
--- NOTE | 2017-07-11 12:59 | Progress Note ---
Assessment and Plan Assessment and plan: Acute CVA. Continue stroke protocol. Awaiting rehabilitation placement. The patient remains hospitalized on Wednesday, we will keep the patient NPO after midnight Wednesday night and proceed with PHOENIX to rule out embolic source for CVA Acute encephalopathy. Etiology likely secondary to #1. Resolved. Accelerated hypertension. Continue antihypertensive medications. SLE. Continue supportive care. Hypokalemia. Replete potassium. DVT prophylaxis. Disposition. Await rehabilitation placement - Patient Problems (1) Accelerated hypertension Current Visit: Yes Status: Acute (2) CVA (cerebral vascular accident) Current Visit: Yes Status: Acute Qualifiers: Precerebral and cerebral artery: middle cerebral artery Laterality of affected vessel: right (3) Encephalopathy Current Visit: Yes Status: Acute (4) Lupus Current Visit: Yes Status: Acute Qualifiers: Lupus erythematosus form: systemic Systemic lupus erythematosus type: unspecified Systemic lupus erythematosus organ involvement: unspecified Qualified Code(s): M32.9 - Systemic lupus erythematosus, unspecified History Interval history: No new issues overnight. Hospitalist Physical - Constitutional Vitals: Temp Pulse Resp BP Pulse Ox 98.4 F 102 H 16 152/72 96 07/11/17 07:29 07/11/17 08:50 07/11/17 07:29 07/11/17 07:29 07/11/17 07:29 General appearance: Present: no acute distress, well-nourished - EENT Eyes: Present: PERRL, EOM intact ENT: hearing intact, clear oral mucosa, dentition normal - Neck Neck: Present: supple, normal ROM - Respiratory Respiratory effort: normal Respiratory: bilateral: CTA - Cardiovascular Rhythm: regular Heart Sounds: Present: S1 & S2. Absent: gallop, rub - Extremities Extremities: no ischemia, No edema, Full ROM - Abdominal General gastrointestinal: soft, non-tender, non-distended, normal bowel sounds - Integumentary Integumentary: Present: clear, warm, dry - Neurologic Neurologic: CNII-XII intact, moves all extremities Results - Labs CBC & Chem 7: 07/07/17 04:58 07/07/17 04:58 Labs: Laboratory Last Values WBC 3.5 K/mm3 (4.5-11.0) L 07/07/17 04:58 RBC 5.07 M/mm3 (3.65-5.03) H 07/07/17 04:58 Hgb 13.9 gm/dl (10.1-14.3) 07/07/17 04:58 Hct 43.7 % (30.3-42.9) H D 07/07/17 04:58 MCV 86 fl (79-97) 07/07/17 04:58 MCH 27 pg (28-32) L 07/07/17 04:58 MCHC 32 % (30-34) 07/07/17 04:58 RDW 16.8 % (13.2-15.2) H 07/07/17 04:58 Plt Count 171 K/mm3 (140-440) 07/07/17 04:58 Lymph % (Auto) 38.3 % (13.4-35.0) H 07/07/17 04:58 [place] % (Auto) 7.9 % (0.0-7.3) H 07/07/17 04:58 Eos % (Auto) 4.6 % (0.0-4.3) H 07/07/17 04:58 Baso % (Auto) 0.6 % (0.0-1.8) 07/07/17 04:58 Lymph # 1.3 K/mm3 (1.2-5.4) 07/07/17 04:58 [place] # 0.3 K/mm3 (0.0-0.8) 07/07/17 04:58 Eos # 0.2 K/mm3 (0.0-0.4) 07/07/17 04:58 Baso # 0.0 K/mm3 (0.0-0.1) 07/07/17 04:58 Seg Neutrophils % 48.6 % (40.0-70.0) 07/07/17 04:58 Seg Neutrophils # 1.7 K/mm3 (1.8-7.7) L 07/07/17 04:58 PT 13.4 Sec. (12.2-14.9) 07/05/17 17:30 INR 0.97 (0.87-1.13) 07/05/17 17:30 APTT 32.6 Sec. (24.2-36.6) 07/05/17 17:30 Sodium 145 mmol/L (137-145) 07/07/17 04:58 Potassium 3.3 mmol/L (3.6-5.0) L 07/07/17 04:58 Chloride 105.2 mmol/L (98-107) 07/07/17 04:58 Carbon Dioxide 20 mmol/L (22-30) L 07/07/17 04:58 Anion Gap 23 mmol/L 07/07/17 04:58 BUN 5 mg/dL (7-17) L 07/07/17 04:58 Creatinine 0.4 mg/dL (0.7-1.2) L 07/07/17 04:58 Estimated GFR > 60 ml/min 07/07/17 04:58 BUN/Creatinine Ratio 13 % 07/07/17 04:58 Glucose 73 mg/dL (65-100) 07/07/17 04:58 POC Glucose 72 (70-105) 07/05/17 17:27 Lactic Acid 1.20 mmol/L (0.7-2.0) 07/05/17 17:30 Calcium 8.4 mg/dL (8.4-10.2) 07/07/17 04:58 Total Bilirubin 0.70 mg/dL (0.1-1.2) 07/05/17 17:30 Direct Bilirubin 0.2 mg/dL (0-0.2) 07/05/17 17:30 Indirect Bilirubin 0.5 mg/dL 07/05/17 17:30 AST 17 units/L (5-40) 07/05/17 17:30 ALT 5 units/L (7-56) L 07/05/17 17:30 Alkaline Phosphatase 72 units/L (35-129) 07/05/17 17:30 Ammonia 29.0 umol/L (25-60) 07/05/17 17:30 Total Creatine Kinase 108 units/L (30-135) 07/05/17 21:46 CK-MB (CK-2) 1.6 ng/mL (0.0-4.0) 07/05/17 21:46 CK-MB (CK-2) Rel Index 1.4 (0-4) 07/05/17 21:46 Troponin T < 0.010 ng/mL (0.00-0.029) 07/05/17 17:30 NT-Pro-B Natriuret Pep 532.0 pg/mL (0-900) 07/05/17 17:30 Total Protein 7.8 g/dL (6.3-8.2) 07/05/17 17:30 Albumin 3.6 g/dL (3.9-5) L 07/05/17 17:30 Albumin/Globulin Ratio 0.9 % 07/05/17 17:30 Triglycerides 113 mg/dL (2-149) 07/06/17 08:39 Cholesterol 149 mg/dL (50-199) 07/06/17 08:39 LDL Cholesterol Direct 91 mg/dL (50-130) 07/06/17 08:39 HDL Cholesterol 36 mg/dL (40-59) L 07/06/17 08:39 Cholesterol/HDL Ratio 4.13 % 07/06/17 08:39 TSH 1.140 mlU/mL (0.270-4.200) 07/05/17 17:30 Urine Color Radha (Yellow) 07/05/17 19:00 Urine Turbidity Clear (Clear) 07/05/17 19:00 Urine pH 6.0 (5.0-7.0) 07/05/17 19:00 Ur Specific [place] 1.023 (1.003-1.030) 07/05/17 19:00 Urine Protein 100 mg/dl mg/dL (Negative) 07/05/17 19:00 Urine Glucose (UA) Neg mg/dL (Negative) 07/05/17 19:00 Urine Ketones 20 mg/dL (Negative) 07/05/17 19:00 Urine Blood Neg (Negative) 07/05/17 19:00 Urine Nitrite Neg (Negative) 07/05/17 19:00 Urine Bilirubin Neg (Negative) 07/05/17 19:00 Urine Urobilinogen 4.0 mg/dL (<2.0) 07/05/17 19:00 Ur Leukocyte Esterase Neg (Negative) 07/05/17 19:00 Urine WBC (Auto) < 1.0 /HPF (0.0-6.0) 07/05/17 19:00 Urine RBC (Auto) < 1.0 /HPF (0.0-6.0) 07/05/17 19:00 U Epithel Cells (Auto) 2.0 /HPF (0-13.0) 07/05/17 19:00 Amorphous Crystals 2+ 07/05/17 19:00 Urine Mucus 3+ /HPF 07/05/17 19:00 Urine Opiates Screen Presumptive negative 07/05/17 19:00 Urine Methadone Screen Presumptive negative 07/05/17 19:00 Ur Barbiturates Screen Presumptive negative 07/05/17 19:00 Ur Phencyclidine Scrn Presumptive negative 07/05/17 19:00 Ur Amphetamines Screen Presumptive negative 07/05/17 19:00 U Benzodiazepines Scrn Presumptive negative 07/05/17 19:00 Urine Cocaine Screen Presumptive negative 07/05/17 19:00 U Marijuana (THC) Screen Presumptive negative 07/05/17 19:00 Drugs of Abuse Note Disclamer 07/05/17 19:00 Plasma/Serum Alcohol < 0.01 gm% (0-0.07) 07/05/17 17:30
--- NOTE | 2017-07-12 09:34 | Discharge Summary ---
Providers - Providers Date of Admission: 07/05/17 20:33 Date of discharge: 07/12/17 Attending physician: DARRION PATEL 07/05/17 20:33 Occupational Therapy Evaluate and Treat [CONS] Routine Comment: Reason For Exam: Neuro deficits Physical Therapy Evaluation and Treat [CONS] Routine Comment: Reason For Exam: Neuro deficits 07/07/17 12:50 Speech Therapy Evaluation and Treat [CONS] Routine Reason For Exam: Recent CVA Primary care physician: CAROL BURDEN Hospitalization Reason for admission: cva Condition: Stable Hospital course: 62 YO Female with HTN, CVA, Obesity, SLE presents to ED with complaints of being confused and unable to move the left side of her body. No reports of falls , trauma, seizure, fever,chills, CP, Palpitations, shortness of breath, productive cough, unintentional weight loss, HIV risk factors, hematurin, urgency, frequency, unintentional weight loss, or night sweats. Pt seen and evaluated in ED and found to be encephalopathic with systolic BP in the 170's. Patient was noted to be outside therapeutic window for TPA. The patient was admitted with diagnosis of acute CVA. Patient was placed on the stroke protocol. MRI revealed new multifocal tiny areas of acute ischemia and embolic source should be considered. Echo revealed left ventricular chamber size that is normal with EF of 75-80%. Abnormal left ventricular diastolic filling is observed, consistent with impaired relaxation. No atrial septal defect detected. I discussed the case with cardiology for possibility of a PHOENIX. The PHOENIX will be performed prior to discharge today. Carotid doppler revealed less than 50% stenosis bilaterally. Physical therapy evaluated the patient and recommended SNF placement. Case management was consulted and discharged SNF was arranged. The patient received secondary prevention with statin and antiplatelet. She had no evidence of abnormal rhythms such as atrial fibrillation/flutter. Patient is continue with blood pressure control for her hypertension. Dedicated discharge time 34 minutes. Disposition: - TO HOME OR SELFCARE - Discharge Diagnoses (1) Accelerated hypertension Status: Acute (2) CVA (cerebral vascular accident) Status: Acute Qualifiers: Precerebral and cerebral artery: middle cerebral artery Laterality of affected vessel: right (3) Encephalopathy Status: Acute (4) Lupus Status: Acute Qualifiers: Lupus erythematosus form: systemic Systemic lupus erythematosus type: unspecified Systemic lupus erythematosus organ involvement: unspecified Qualified Code(s): M32.9 - Systemic lupus erythematosus, unspecified Core Measure Documentation - Palliative Care Palliative Care/ Comfort Measures: Not Applicable - Core Measures Any of the following diagnoses?: stroke - Stroke Discharge Requirements Statin for LDL = or >70 mg/dl on DC: Yes Anticoag for atrial fib/atrial flutter: Not Applicable Antithrombotic for ischemic stroke: Yes Exam - Constitutional Vitals: Temp Pulse Resp BP Pulse Ox 98.5 F 100 H 20 143/77 98 07/12/17 04:55 07/12/17 04:55 07/12/17 04:55 07/12/17 04:55 07/12/17 04:55 General appearance: Present: no acute distress, well-nourished - EENT Eyes: Present: PERRL ENT: hearing intact, clear oral mucosa - Neck Neck: Present: supple, normal ROM - Respiratory Respiratory effort: normal Respiratory: bilateral: CTA - Cardiovascular Heart Sounds: Present: S1 & S2. Absent: rub, click - Extremities Extremities: pulses symmetrical, No edema Peripheral Pulses: within normal limits - Abdominal General gastrointestinal: Present: soft, non-tender, non-distended, normal bowel sounds Female genitourinary: Present: normal - Integumentary Integumentary: Present: clear, warm, dry - Musculoskeletal Musculoskeletal: gait normal, strength equal bilaterally - Psychiatric Psychiatric: appropriate mood/affect, intact judgment & insight - Neurologic Neurologic: CNII-XII intact, moves all extremities Plan Activity: advance as tolerated Weight Bearing Status: Weight Bear as Tolerated Diet: low fat, low cholesterol, low salt Follow up with: PRIMARY CARE, [Referring] - 3-5 Days Forms: Work/School Release Form Prescriptions: Aspirin EC [Aspirin Enteric Coated TAB] 325 mg PO QDAY #30 tablet.
[2017-07-12] MEDS ORDERED: VERSED IV SCH (10:59)
[2017-07-12] MEDS ORDERED: SUBLIMAZE IV ONE (11:03)
[2017-07-12] MEDS ORDERED: HURRICAINE ONE 20% TOPICAL SPRAY MM SCH (12:00)
[2017-07-12] MEDS ORDERED: VERSED IV ONE (12:14)
[2017-07-12] MEDS ORDERED: HURRICAINE ONE 20% TOPICAL SPRAY MM ×2 (12:14→13:59)
[2017-07-12] MEDS ORDERED: SUBLIMAZE ONE (12:14)
--- NOTE | 2017-07-13 10:19 | Progress Note ---
Assessment and Plan Acute CVA. Continue stroke protocol. Awaiting rehabilitation placement. The patient remains hospitalized on Wednesday, we will keep the patient NPO after midnight Wednesday night and proceed with PHOENIX to rule out embolic source for CVA Acute encephalopathy. Etiology likely secondary to #1. Resolved. Accelerated hypertension. Continue antihypertensive medications. SLE. Continue supportive care. Hypokalemia. Replete potassium. DVT prophylaxis. Disposition. Await rehabilitation placement - Patient Problems (1) Accelerated hypertension Current Visit: Yes Status: Acute (2) CVA (cerebral vascular accident) Current Visit: Yes Status: Acute Qualifiers: Precerebral and cerebral artery: middle cerebral artery Laterality of affected vessel: right (3) Encephalopathy Current Visit: Yes Status: Acute (4) Lupus Current Visit: Yes Status: Acute Qualifiers: Lupus erythematosus form: systemic Systemic lupus erythematosus type: unspecified Systemic lupus erythematosus organ involvement: unspecified Qualified Code(s): M32.9 - Systemic lupus erythematosus, unspecified Subjective Date of service: 07/12/17 Principal diagnosis: cva Interval history: No new issues overnight. Objective - Constitutional Vitals: Vital Signs - 12hr 07/12/17 07/12/17 07/13/17 22:49 23:48 00:30 Temperature 99.1 F Pulse Rate 105 H 104 H Respiratory 18 Rate Blood Pressure 138/77 Blood Pressure 138/77 [Right] O2 Sat by Pulse 94 96 Oximetry 07/13/17 07/13/17 05:13 08:00 Temperature 98.3 F 98.0 F Pulse Rate 89 94 H Respiratory 20 18 Rate Blood Pressure 134/58 Blood Pressure 136/84 [Right] O2 Sat by Pulse 99 Oximetry General appearance: Present: no acute distress, well-nourished - EENT Eyes: PERRL, EOM intact ENT: hearing intact, clear oral mucosa Ears: bilateral: normal - Neck Neck: supple, normal ROM - Respiratory Respiratory effort: normal Respiratory: bilateral: CTA - Breasts Breasts: normal - Cardiovascular Rhythm: regular Heart Sounds: Present: S1 & S2. Absent: gallop, rub Extremities: pulses intact, No edema, normal color, Full ROM - Gastrointestinal General gastrointestinal: Present: soft, non-tender, non-distended, normal bowel sounds - Genitourinary Female genitourinary: normal - Integumentary Integumentary: clear, warm, dry - Musculoskeletal Musculoskeletal: 1, strength equal bilaterally - Neurologic Neurologic: moves all extremities - Psychiatric Psychiatric: memory intact, appropriate mood/affect, intact judgment & insight - Labs CBC & Chem 7: 07/07/17 04:58 07/07/17 04:58
--- NOTE | 2017-07-13 10:20 | Discharge Summary ---
Providers - Providers Date of Admission: 07/05/17 20:33 Date of discharge: 07/13/17 Attending physician: DARRION PATEL 07/05/17 20:33 Occupational Therapy Evaluate and Treat [CONS] Routine Comment: Reason For Exam: Neuro deficits Physical Therapy Evaluation and Treat [CONS] Routine Comment: Reason For Exam: Neuro deficits 07/07/17 12:50 Speech Therapy Evaluation and Treat [CONS] Routine Reason For Exam: Recent CVA Primary care physician: CAROL BURDEN Hospitalization Condition: Stable Hospital course: 62 YO Female with HTN, CVA, Obesity, SLE presents to ED with complaints of being confused and unable to move the left side of her body. No reports of falls , trauma, seizure, fever,chills, CP, Palpitations, shortness of breath, productive cough, unintentional weight loss, HIV risk factors, hematurin, urgency, frequency, unintentional weight loss, or night sweats. Pt seen and evaluated in ED and found to be encephalopathic with systolic BP in the 170's. Patient was noted to be outside therapeutic window for TPA. The patient was admitted with diagnosis of acute CVA. Patient was placed on the stroke protocol. MRI revealed new multifocal tiny areas of acute ischemia and embolic source should be considered. Echo revealed left ventricular chamber size that is normal with EF of 75-80%. Abnormal left ventricular diastolic filling is observed, consistent with impaired relaxation. No atrial septal defect detected. 2D Echocardiogram was a limited and difficult study, given her body habitus. Therefore, PHOENIX was obtained to rule out embolic source, which was found to be negative. Carotid doppler revealed less than 50% stenosis bilaterally. Physical therapy evaluated the patient and recommended SNF placement. Case management was consulted and discharged SNF was arranged. The patient received secondary prevention with statin and antiplatelet. She had no evidence of abnormal rhythms such as atrial fibrillation/flutter. Patient is continue with blood pressure control for her hypertension. Dedicated discharge time 34 minutes. Disposition: - TO HOME OR SELFCARE - Discharge Diagnoses (1) Accelerated hypertension Status: Acute (2) CVA (cerebral vascular accident) Status: Acute Qualifiers: Precerebral and cerebral artery: middle cerebral artery Laterality of affected vessel: right (3) Encephalopathy Status: Acute (4) Lupus Status: Acute Qualifiers: Lupus erythematosus form: systemic Systemic lupus erythematosus type: unspecified Systemic lupus erythematosus organ involvement: unspecified Qualified Code(s): M32.9 - Systemic lupus erythematosus, unspecified Core Measure Documentation - Palliative Care Palliative Care/ Comfort Measures: Not Applicable - Core Measures Any of the following diagnoses?: stroke - Stroke Discharge Requirements Statin for LDL = or >70 mg/dl on DC: Yes Anticoag for atrial fib/atrial flutter: Not Applicable Antithrombotic for ischemic stroke: Yes Exam - Constitutional Vitals: Temp Pulse Resp BP Pulse Ox 98.0 F 94 H 18 134/58 99 07/13/17 08:00 07/13/17 08:00 07/13/17 08:00 07/13/17 08:00 07/13/17 08:00 General appearance: Present: no acute distress, well-nourished - EENT Eyes: Present: PERRL ENT: hearing intact, clear oral mucosa - Neck Neck: Present: supple, normal ROM - Respiratory Respiratory effort: normal Respiratory: bilateral: CTA - Cardiovascular Heart Sounds: Present: S1 & S2. Absent: rub, click - Extremities Extremities: pulses symmetrical, No edema Peripheral Pulses: within normal limits - Abdominal General gastrointestinal: Present: soft, non-tender, non-distended, normal bowel sounds Female genitourinary: Present: normal - Integumentary Integumentary: Present: clear, warm, dry - Musculoskeletal Musculoskeletal: gait normal, strength equal bilaterally - Psychiatric Psychiatric: appropriate mood/affect, intact judgment & insight - Neurologic Neurologic: CNII-XII intact, moves all extremities Plan Activity: advance as tolerated Weight Bearing Status: Weight Bear as Tolerated Diet: low fat, low cholesterol, low salt Follow up with: PRIMARY CARE, [Referring] - 3-5 Days Forms: Work/School Release Form Prescriptions: Aspirin EC [Aspirin Enteric Coated TAB] 325 mg PO QDAY #30 tablet.
[2017-07-14] MEDS: K-DUR PO SCH ×3 (12:00→19:57)
--- NOTE | 2017-07-14 12:32 | Progress Note ---
Assessment and Plan Assessment and plan: Acute ischemic stroke. Patient awaiting placement. Acute encephalopathy. Etiology likely secondary to #1. Resolved. Accelerated hypertension. Continue antihypertensive medications. SLE. Continue supportive care. Hypokalemia. Replete potassium. DVT prophylaxis. Disposition. Awaiting rehabilitation placement History Interval history: Patient with stroke, awaiting placement Hospitalist Physical - Physical exam Narrative exam: GEN APPEARANCE : Not in acute distress, HEENT: Normocephalic, Atraumatic NECK : supple, no JVD LUNGS: Clear to auscultation bilaterally, no rales, no wheeze HEART: S1 and S2 regular, no murmurs, rubs or gallop, ABD: Soft, non tender, non distended, normal bowel sounds EXT:No edema, no clubbing, no cyanosis NEURO: Awake, alert, Psych:Normal mood - Constitutional Vitals: Temp Pulse Resp BP Pulse Ox 98.6 F 108 H 18 160/93 97 07/14/17 11:47 07/14/17 11:47 07/14/17 11:47 07/14/17 11:47 07/14/17 11:47 Results - Labs CBC & Chem 7: 07/07/17 04:58 07/07/17 04:58 Labs: Laboratory Last Values WBC 3.5 K/mm3 (4.5-11.0) L 07/07/17 04:58 RBC 5.07 M/mm3 (3.65-5.03) H 07/07/17 04:58 Hgb 13.9 gm/dl (10.1-14.3) 07/07/17 04:58 Hct 43.7 % (30.3-42.9) H D 07/07/17 04:58 MCV 86 fl (79-97) 07/07/17 04:58 MCH 27 pg (28-32) L 07/07/17 04:58 MCHC 32 % (30-34) 07/07/17 04:58 RDW 16.8 % (13.2-15.2) H 07/07/17 04:58 Plt Count 171 K/mm3 (140-440) 07/07/17 04:58 Lymph % (Auto) 38.3 % (13.4-35.0) H 07/07/17 04:58 [place] % (Auto) 7.9 % (0.0-7.3) H 07/07/17 04:58 Eos % (Auto) 4.6 % (0.0-4.3) H 07/07/17 04:58 Baso % (Auto) 0.6 % (0.0-1.8) 07/07/17 04:58 Lymph # 1.3 K/mm3 (1.2-5.4) 07/07/17 04:58 [place] # 0.3 K/mm3 (0.0-0.8) 07/07/17 04:58 Eos # 0.2 K/mm3 (0.0-0.4) 07/07/17 04:58 Baso # 0.0 K/mm3 (0.0-0.1) 07/07/17 04:58 Seg Neutrophils % 48.6 % (40.0-70.0) 07/07/17 04:58 Seg Neutrophils # 1.7 K/mm3 (1.8-7.7) L 07/07/17 04:58 PT 13.4 Sec. (12.2-14.9) 07/05/17 17:30 INR 0.97 (0.87-1.13) 07/05/17 17:30 APTT 32.6 Sec. (24.2-36.6) 07/05/17 17:30 Sodium 145 mmol/L (137-145) 07/07/17 04:58 Potassium 3.3 mmol/L (3.6-5.0) L 07/07/17 04:58 Chloride 105.2 mmol/L (98-107) 07/07/17 04:58 Carbon Dioxide 20 mmol/L (22-30) L 07/07/17 04:58 Anion Gap 23 mmol/L 07/07/17 04:58 BUN 5 mg/dL (7-17) L 07/07/17 04:58 Creatinine 0.4 mg/dL (0.7-1.2) L 07/07/17 04:58 Estimated GFR > 60 ml/min 07/07/17 04:58 BUN/Creatinine Ratio 13 % 07/07/17 04:58 Glucose 73 mg/dL (65-100) 07/07/17 04:58 POC Glucose 99 (70-105) 07/12/17 20:40 Lactic Acid 1.20 mmol/L (0.7-2.0) 07/05/17 17:30 Calcium 8.4 mg/dL (8.4-10.2) 07/07/17 04:58 Total Bilirubin 0.70 mg/dL (0.1-1.2) 07/05/17 17:30 Direct Bilirubin 0.2 mg/dL (0-0.2) 07/05/17 17:30 Indirect Bilirubin 0.5 mg/dL 07/05/17 17:30 AST 17 units/L (5-40) 07/05/17 17:30 ALT 5 units/L (7-56) L 07/05/17 17:30 Alkaline Phosphatase 72 units/L (35-129) 07/05/17 17:30 Ammonia 29.0 umol/L (25-60) 07/05/17 17:30 Total Creatine Kinase 108 units/L (30-135) 07/05/17 21:46 CK-MB (CK-2) 1.6 ng/mL (0.0-4.0) 07/05/17 21:46 CK-MB (CK-2) Rel Index 1.4 (0-4) 07/05/17 21:46 Troponin T < 0.010 ng/mL (0.00-0.029) 07/05/17 17:30 NT-Pro-B Natriuret Pep 532.0 pg/mL (0-900) 07/05/17 17:30 Total Protein 7.8 g/dL (6.3-8.2) 07/05/17 17:30 Albumin 3.6 g/dL (3.9-5) L 07/05/17 17:30 Albumin/Globulin Ratio 0.9 % 07/05/17 17:30 Triglycerides 113 mg/dL (2-149) 07/06/17 08:39 Cholesterol 149 mg/dL (50-199) 07/06/17 08:39 LDL Cholesterol Direct 91 mg/dL (50-130) 07/06/17 08:39 HDL Cholesterol 36 mg/dL (40-59) L 07/06/17 08:39 Cholesterol/HDL Ratio 4.13 % 07/06/17 08:39 TSH 1.140 mlU/mL (0.270-4.200) 07/05/17 17:30 Urine Color Radha (Yellow) 07/05/17 19:00 Urine Turbidity Clear (Clear) 07/05/17 19:00 Urine pH 6.0 (5.0-7.0) 07/05/17 19:00 Ur Specific [place] 1.023 (1.003-1.030) 07/05/17 19:00 Urine Protein 100 mg/dl mg/dL (Negative) 07/05/17 19:00 Urine Glucose (UA) Neg mg/dL (Negative) 07/05/17 19:00 Urine Ketones 20 mg/dL (Negative) 07/05/17 19:00 Urine Blood Neg (Negative) 07/05/17 19:00 Urine Nitrite Neg (Negative) 07/05/17 19:00 Urine Bilirubin Neg (Negative) 07/05/17 19:00 Urine Urobilinogen 4.0 mg/dL (<2.0) 07/05/17 19:00 Ur Leukocyte Esterase Neg (Negative) 07/05/17 19:00 Urine WBC (Auto) < 1.0 /HPF (0.0-6.0) 07/05/17 19:00 Urine RBC (Auto) < 1.0 /HPF (0.0-6.0) 07/05/17 19:00 U Epithel Cells (Auto) 2.0 /HPF (0-13.0) 07/05/17 19:00 Amorphous Crystals 2+ 07/05/17 19:00 Urine Mucus 3+ /HPF 07/05/17 19:00 Urine Opiates Screen Presumptive negative 07/05/17 19:00 Urine Methadone Screen Presumptive negative 07/05/17 19:00 Ur Barbiturates Screen Presumptive negative 07/05/17 19:00 Ur Phencyclidine Scrn Presumptive negative 07/05/17 19:00 Ur Amphetamines Screen Presumptive negative 07/05/17 19:00 U Benzodiazepines Scrn Presumptive negative 07/05/17 19:00 Urine Cocaine Screen Presumptive negative 07/05/17 19:00 U Marijuana (THC) Screen Presumptive negative 07/05/17 19:00 Drugs of Abuse Note Disclamer 07/05/17 19:00 Plasma/Serum Alcohol < 0.01 gm% (0-0.07) 07/05/17 17:30
[2017-07-14] MEDS ORDERED: K-DUR PO SCH (20:00)
[2017-07-15] MEDS ORDERED: APRESOLINE IV PRN (09:59)
--- NOTE | 2017-07-15 09:59 | Progress Note ---
Assessment and Plan Assessment and plan: Acute ischemic stroke. Patient awaiting placement to SNF Acute encephalopathy likely secondary to acute ischemic stroke. SLE. Continue supportive care. Hypokalemia. Resolved after repleted potassium. Hypertensive urgency. BP 192/85. Resume Toprol XL 150mg po daily. Hydralazine 10 mg iv Q 6 prn Fever, low grade. Monitor. If persists may do blood cultures, UA, Urine Cx DVT prophylaxis. Heparin subcut. History Interval history: Patient with stroke, awaiting placement Fever yesterday Elevated BP Hospitalist Physical - Physical exam Narrative exam: GEN APPEARANCE : Not in acute distress, Obese HEENT: Normocephalic, Atraumatic NECK : supple, no JVD LUNGS: Clear to auscultation bilaterally, no rales, no wheeze HEART: S1 and S2 regular, no murmurs, rubs or gallop, ABD: Soft, non tender, non distended, normal bowel sounds EXT:No edema, no clubbing, no cyanosis NEURO: Awake, alert,oriented Psych:Normal mood - Constitutional Vitals: Temp Pulse Resp BP Pulse Ox 98.9 F 113 H 16 192/85 98 07/15/17 07:13 07/15/17 07:13 07/15/17 07:13 07/15/17 07:13 07/15/17 07:13 General appearance: Present: no acute distress Results - Labs CBC & Chem 7: 07/15/17 10:18 07/15/17 10:18 Labs: Laboratory Last Values WBC 3.5 K/mm3 (4.5-11.0) L 07/07/17 04:58 RBC 5.07 M/mm3 (3.65-5.03) H 07/07/17 04:58 Hgb 13.9 gm/dl (10.1-14.3) 07/07/17 04:58 Hct 43.7 % (30.3-42.9) H D 07/07/17 04:58 MCV 86 fl (79-97) 07/07/17 04:58 MCH 27 pg (28-32) L 07/07/17 04:58 MCHC 32 % (30-34) 07/07/17 04:58 RDW 16.8 % (13.2-15.2) H 07/07/17 04:58 Plt Count 171 K/mm3 (140-440) 07/07/17 04:58 Lymph % (Auto) 38.3 % (13.4-35.0) H 07/07/17 04:58 [place] % (Auto) 7.9 % (0.0-7.3) H 07/07/17 04:58 Eos % (Auto) 4.6 % (0.0-4.3) H 07/07/17 04:58 Baso % (Auto) 0.6 % (0.0-1.8) 07/07/17 04:58 Lymph # 1.3 K/mm3 (1.2-5.4) 07/07/17 04:58 [place] # 0.3 K/mm3 (0.0-0.8) 07/07/17 04:58 Eos # 0.2 K/mm3 (0.0-0.4) 07/07/17 04:58 Baso # 0.0 K/mm3 (0.0-0.1) 07/07/17 04:58 Seg Neutrophils % 48.6 % (40.0-70.0) 07/07/17 04:58 Seg Neutrophils # 1.7 K/mm3 (1.8-7.7) L 07/07/17 04:58 PT 13.4 Sec. (12.2-14.9) 07/05/17 17:30 INR 0.97 (0.87-1.13) 07/05/17 17:30 APTT 32.6 Sec. (24.2-36.6) 07/05/17 17:30 Sodium 145 mmol/L (137-145) 07/07/17 04:58 Potassium 3.3 mmol/L (3.6-5.0) L 07/07/17 04:58 Chloride 105.2 mmol/L (98-107) 07/07/17 04:58 Carbon Dioxide 20 mmol/L (22-30) L 07/07/17 04:58 Anion Gap 23 mmol/L 07/07/17 04:58 BUN 5 mg/dL (7-17) L 07/07/17 04:58 Creatinine 0.4 mg/dL (0.7-1.2) L 07/07/17 04:58 Estimated GFR > 60 ml/min 07/07/17 04:58 BUN/Creatinine Ratio 13 % 07/07/17 04:58 Glucose 73 mg/dL (65-100) 07/07/17 04:58 POC Glucose 99 (70-105) 07/12/17 20:40 Lactic Acid 1.20 mmol/L (0.7-2.0) 07/05/17 17:30 Calcium 8.4 mg/dL (8.4-10.2) 07/07/17 04:58 Total Bilirubin 0.70 mg/dL (0.1-1.2) 07/05/17 17:30 Direct Bilirubin 0.2 mg/dL (0-0.2) 07/05/17 17:30 Indirect Bilirubin 0.5 mg/dL 07/05/17 17:30 AST 17 units/L (5-40) 07/05/17 17:30 ALT 5 units/L (7-56) L 07/05/17 17:30 Alkaline Phosphatase 72 units/L (35-129) 07/05/17 17:30 Ammonia 29.0 umol/L (25-60) 07/05/17 17:30 Total Creatine Kinase 108 units/L (30-135) 07/05/17 21:46 CK-MB (CK-2) 1.6 ng/mL (0.0-4.0) 07/05/17 21:46 CK-MB (CK-2) Rel Index 1.4 (0-4) 07/05/17 21:46 Troponin T < 0.010 ng/mL (0.00-0.029) 07/05/17 17:30 NT-Pro-B Natriuret Pep 532.0 pg/mL (0-900) 07/05/17 17:30 Total Protein 7.8 g/dL (6.3-8.2) 07/05/17 17:30 Albumin 3.6 g/dL (3.9-5) L 07/05/17 17:30 Albumin/Globulin Ratio 0.9 % 07/05/17 17:30 Triglycerides 113 mg/dL (2-149) 07/06/17 08:39 Cholesterol 149 mg/dL (50-199) 07/06/17 08:39 LDL Cholesterol Direct 91 mg/dL (50-130) 07/06/17 08:39 HDL Cholesterol 36 mg/dL (40-59) L 07/06/17 08:39 Cholesterol/HDL Ratio 4.13 % 07/06/17 08:39 TSH 1.140 mlU/mL (0.270-4.200) 07/05/17 17:30 Urine Color [place]ha (Yellow) 07/05/17 19:00 Urine Turbidity Clear (Clear) 07/05/17 19:00 Urine pH 6.0 (5.0-7.0) 07/05/17 19:00 Ur Specific [place] 1.023 (1.003-1.030) 07/05/17 19:00 Urine Protein 100 mg/dl mg/dL (Negative) 07/05/17 19:00 Urine Glucose (UA) Neg mg/dL (Negative) 07/05/17 19:00 Urine Ketones 20 mg/dL (Negative) 07/05/17 19:00 Urine Blood Neg (Negative) 07/05/17 19:00 Urine Nitrite Neg (Negative) 07/05/17 19:00 Urine Bilirubin Neg (Negative) 07/05/17 19:00 Urine Urobilinogen 4.0 mg/dL (<2.0) 07/05/17 19:00 Ur Leukocyte Esterase Neg (Negative) 07/05/17 19:00 Urine WBC (Auto) < 1.0 /HPF (0.0-6.0) 07/05/17 19:00 Urine RBC (Auto) < 1.0 /HPF (0.0-6.0) 07/05/17 19:00 U Epithel Cells (Auto) 2.0 /HPF (0-13.0) 07/05/17 19:00 Amorphous Crystals 2+ 07/05/17 19:00 Urine Mucus 3+ /HPF 07/05/17 19:00 Urine Opiates Screen Presumptive negative 07/05/17 19:00 Urine Methadone Screen Presumptive negative 07/05/17 19:00 Ur Barbiturates Screen Presumptive negative 07/05/17 19:00 Ur Phencyclidine Scrn Presumptive negative 07/05/17 19:00 Ur Amphetamines Screen Presumptive negative 07/05/17 19:00 U Benzodiazepines Scrn Presumptive negative 07/05/17 19:00 Urine Cocaine Screen Presumptive negative 07/05/17 19:00 U Marijuana (THC) Screen Presumptive negative 07/05/17 19:00 Drugs of Abuse Note Disclamer 07/05/17 19:00 Plasma/Serum Alcohol < 0.01 gm% (0-0.07) 07/05/17 17:30
[2017-07-15 10:51] LABS: Hematocrit 35.6 % (30.3-42.9); Hemoglobin 11.7 gm/dl (10.1-14.3); Mean Corpuscular HGB Conc 33 % (30-34); Mean Corpuscular Hemoglobin 28 pg (28-32); Mean Corpuscular Volume 86 fl (79-97); Platelet Count 219 K/mm3 (140-440); Red Blood Count 4.14 M/mm3 (3.65-5.03); Red Cell Distribution Width 16.9 % (13.2-15.2)
[2017-07-15 11:06] LABS: BUN/Creatinine Ratio 20; Blood Urea Nitrogen 8 mg/dL (7-17); Calcium 8.3 mg/dL (8.4-10.2); Hemolysis Index 43
[2017-07-15] MEDS: PERCOCET 5/325 PO PRN (11:54)
[2017-07-15] MEDS ORDERED: TOPROL XL PO SCH (12:00)
[2017-07-15] MEDS ORDERED: HEPARIN SUB-Q SCH (14:00)
[2017-07-15] MEDS ORDERED: LIORESAL PO SCH (14:00)
[2017-07-15] MEDS ORDERED: NEURONTIN PO SCH (14:00)
[2017-07-15 15:06] VITALS: BP 140/82
--- NOTE | 2017-07-16 09:53 | Vascular Lab Report ---
CAROTID DUPLEX STUDY: RIGHT PSVEDV CCA PROX:966 CCA DIST:8712 ICA PROX:417 ICA MID:4112 ICA DIST:3810 ECA: 7113 VERT: 61 13 LEFT PSVEDV CCA PROX:73806 CCA DIST:8213 ICA PROX:5812 ICA MID:5913 ICA DIST:5414 ECA: 7912 VERT: 75 26 REASON FOR EXAM: Stroke. COMMENTS ON THE RIGHT: Doppler frequency analysis is consistent with 16 to 49 percent diameter reduction of the internal carotid artery. Minimal amount of plaque is seen. The common carotid artery is patent. The external carotid artery is patent. The vertebral artery has antegrade flow. COMMENTS ON THE LEFT: Doppler frequency analysis is consistent with 16 to 49 percent diameter reduction of the internal carotid artery. A moderate amount of calcified plaque is seen. The common carotid artery is patent. The external carotid artery is patent. The vertebral artery has antegrade flow. IMPRESSION: Less than 50% diameter reduction in the internal carotid arteries bilaterally. Calcified plaque is seen in the left internal carotid artery. Consider repeat carotid artery duplex in 12 months.
== END 2017-07-15 13:30 | DRG 64 ==
LOC: ED 15:22 → 4A 20:33
PROVIDERS: ADMIT Internal Medicine; ATTEND Internal Medicine
DX: I63.49 Cerebral infarction due to embolism of other cerebral artery (principal); G93.40 Encephalopathy, unspecified; I69.354 Hemiplegia and hemiparesis following cerebral infarction affecting left non-dominant side; M32.9 Systemic lupus erythematosus, unspecified; E87.6 Hypokalemia; I10 Essential (primary) hypertension; I16.0 Hypertensive urgency; Z88.0 Allergy status to penicillin; Z79.899 Other long term (current) drug therapy; Z82.49 Family history of ischemic heart disease and other diseases of the circulatory system; Z88.5 Allergy status to narcotic agent; Z88.2 Allergy status to sulfonamides; Z88.6 Allergy status to analgesic agent; Z88.8 Allergy status to other drugs, medicaments and biological substances
CPT/HCPCS: 36415; 70450; 70544; 70551; 71045; 80048; 80061; 80074; 80307; 80320; 81001; 82140; 82550; 82553; 82962; 83880; 84443; 84484; 85025; 85027; 85610; 85730; 87040; 87086; 93005; 93010; 93306; 93312; 93320; 93325; 93880; 94760; 95819; 96374; G0480; G8996-GN; G8997-GN; J2060; J2250; J2405; J3010; J7030